=== PATIENT | female | born 1995 | race Caucasian/White ===

== ENCOUNTER → 2016-12-10 | Outpatient (CLI) | payer OTHER ==
--- NOTE | 2016-12-10 13:35 | US ---
EXAMINATION TYPE: US OB anatomy transabd DATE OF EXAM: 12/10/2016 COMPARISON: NONE HISTORY: Large for dates, second trimester O36.62 TECHNIQUE: Transabdominal (TA) EXAM MEASUREMENTS: GESTATIONAL AGE / DATING Physician Established: (23 weeks/1 day) EDC: 04/07/2017 Dates by LMP: (23 weeks/1 day) EDC: 04/07/2017 First Scan: today Dates by Current Scan for: (22 weeks/0 days) EDC: 04/15/2017 SURVEY IUP: Single PLACENTA: Posterior PREVIA: No previa YOLANDA: 12.9 cm Normal CERVICAL LENGTH (transabdominal: norm > 3.0cm): 3.9 cm BIOMETRY PRESENTATION: Vertex LIE: Longitudinal BPD: 5.0 cm 21 weeks / 1 day HC: 20.1 cm 22 weeks / 2 day AC: 17.2 cm 22 weeks / day FL: 3.8 cm 22 weeks / day ESTIMATED WEIGHT IN GRAMS: 477.3 grams ESTIMATED WEIGHT IN LBS/OZ: 1 lbs. 1 oz. WEIGHT PERCENTAGE BASED ON ESTABLISHED DATE: 7.*9 % HC/AC: 1.17 Normal FL/AC: 22.0 Normal HEART RATE: 140 bpm RHYTHM: Normal ANATOMY SEEN (within normal limits): * Lateral Vent (< 1 cm) 0.8 cm * Cisterna Magna (< 1.1 cm) 0.4 cm * Nuchal Fold (< 0.6 cm) 0.5 cm * Cerebellum (varies with age) 2.2 cm Choroid Plexus (bilateral) Midline Falx Cavus Septi Pellucidi Four Chamber Heart Outflow tracts: LVOT/RVOT Stomach Situs Diaphragm Kidneys (bilateral) Bladder Cord Insert Three Vessel Cord Longitudinal Spine Transverse Spine Arms (bilateral) Legs (bilateral) ANATOMY NOT SEEN: Nose / Lips due to position Single, live, IUP, 22 weeks/0 days, EDC: 04/15/2017, [id number]. IMPRESSION: HASSAN FETUS PRESENT IN A VERTEX LIE WITH A GESTATIONAL AGE OF 22 WEEKS +/- 2 2 WEEKS. ESTIMATED D ATE OF CONFINEMENT BASED ON THIS EXAMINATION IS 04/15/2017.
== END | disposition home or self-care (01) ==
LOC: RADUSWWP 12:13
PROVIDERS: ATTEND Obstetrics & Gynecology
DX: O36.62X0 Maternal care for excessive fetal growth, second trimester, not applicable or unspecified (principal); Z3A.22 22 weeks gestation of pregnancy
CPT/HCPCS: 76811

== ENCOUNTER 2017-01-29 12:22 | Outpatient (CLI) | payer OTHER ==
[2017-01-29 12:51] VITALS: BP 101/64; PULSE 90; RESP 16; TEMP 97.1
[2017-01-29] MEDS: LACTATED RINGERS 1,000 ML IV SCH ×2 (13:09→13:39)
[2017-01-29 13:11] LABS: Appearance,Urine Cloudy (Clear); Bacteria,Urine Rare /hpf; Bilirubin,Urine Negative (Negative); Glucose,Urine (UA) Negative (Negative); Ketones,Urine 3+ (Negative); Leukocyte Esterase,Urine Large (Negative); Mucus,Urine Many /hpf; Nitrite,Urine Negative (Negative); PH, Urine 6.5 (5.0-8.0); Particle Count 11711; Protein,Urine Trace (Negative); RBC,Urine 1 /hpf (0-5); Specific Gravity,Urine 1.013 (1.001-1.035); Squamous Epithelial Cell,Urine 15 /hpf (0-4); UA Billing (MACRO vs. MICRO) MICRO; Urobilinogen,Urine <2.0 mg/dL (<2.0); WBC,Urine 8 /hpf (0-5)
--- NOTE | 2017-03-25 08:49 | P.MSEPDOC ---
Presenting Problems - Arrival Data Date of Arrival on Unit: 01/29/17 Time of Arrival on Unit: 12:22 Mode of Transport: Ambulatory - Complaint OB-Reason for Admission/Chief Complaint: Possible Onset of Labor, Pain Comment: Pt states she started feeling contractions today and yesterday she was nauseated/vomiting and had diarrhea. Medical History - Information : 3 Para: 2 Term: 2 : 0 Abortions: Spontaneous or Elective: 0 Number of Living Children: 2 - Gestational Age Gestational Age by LONG (wks/days): 30 Weeks and 2 Days Review of Systems - Review of Systems Constitutional: No problems Breast: No problems ENT: No problems Cardiovascular: No problems Respiratory: No problems Gastrointestinal: No problems Genitourinary: No problems Musculoskeletal: No problems Neurological: No problems Skin: No problems Vital Signs - Temperature Temperature: 97.1 F Temperature Source: Temporal Artery Scan - Pulse Right Pulse Oximetery Pulse Rate: 90 Pulse Assessment Method: Pulse Oximetry - Respirations Respiratory Rate: 16 Oxygen Delivery Method: Room Air O2 Sat by Pulse Oximetry: 100 - Blood Pressure Right Arm Blood Pressure: 101/64 Blood Pressure Mean: 76 Blood Pressure Source: Automatic Cuff Medical Screen Scoring (Pre) - Cervical Exam Dilation: Exam Deferred Effacement: Exam Deferred Membranes: Intact - Uterine Contractions Frequency: < 36 weeks = 6 Duration: N/A Intensity: N/A - Maternal Vital Signs Maternal Temperature: N/A Maternal Blood Pressure: N/A Signs of Preeclampsia: N/A Maternal Respirations: N/A - Maternal Trauma Maternal Trauma: N/A - Assessment Baseline FHR: 145 Heart Rate - NICHD Category: Category I (Normal) = 0 NST: Reactive Position: N/A Station: N/A - Total Score Total Score (Pre): 6 - Level of Risk Level of Risk: Medium (6-9) Medical Screen Scoring (Post) - Cervical Exam Dilation: 1-3 cm = 1 Membranes: Intact - Uterine Contractions Frequency: > 5 minutes apart = 1 Duration: N/A Intensity: N/A - Maternal Vital Signs Maternal Temperature: N/A Maternal Blood Pressure: N/A Signs of Preeclampsia: N/A Maternal Respirations: N/A - Maternal Trauma Maternal Trauma: N/A - Assessment Heart Rate: 135 Heart Rate - NICHD Category: Category I (Normal) = 0 NST: Reactive Position: N/A Station: N/A - Total Score Total Score (Post): 2 - Post Treatment Level of Risk Post Treatment Level of Risk: Low (0-5) Physician Notification (Post) - Physician Notified Physician Notified Date: 01/29/17 Physician Notified Time: 12:50 Physician/Practitioner Notified:: Dr Freitas Spoke With: Telephone New Order Received: Yes (discharge) Disposition - Disposition OB Disposition: Discharge to home Discharge Date: 01/29/17 Discharge Time: 14:57 I agree with the RN Medical Screening Exam: Yes Risk & Benefit of care provided described in d/c instruction: Yes Diagnosis: FALSE LABOR BEFORE 37 COMPLETED WEEKS OF GEST, THIRD TRI
== END 2017-01-29 14:57 | disposition home or self-care (01) ==
LOC: FBPOP 12:22
PROVIDERS: ATTEND Obstetrics & Gynecology
DX: O47.03 False labor before 37 completed weeks of gestation, third trimester (principal); Z3A.30 30 weeks gestation of pregnancy
CPT/HCPCS: 59025; 81001; 82731; 96360; 96361; 99214

== ENCOUNTER → 2017-02-10 | Outpatient (CLI) | payer OTHER ==
--- NOTE | 2017-02-10 14:22 | US ---
EXAMINATION TYPE: US OB anatomy transabd DATE OF EXAM: 02/10/2017 COMPARISON: 12/10/2016 HISTORY: 21-year-old female Large for Dates O36.63XO LGA TECHNIQUE: Transabdominal (TA) FINDINGS: EXAM MEASUREMENTS: GESTATIONAL AGE / DATING Physician Established: (32 weeks/0 days) EDC: 04/07/2017 Dates by LMP: (32 weeks/0 days) EDC: 04/07/2017 Dates by First Scan: (30 weeks/6 days) EDC: 04/15/2017 Dates by Current Scan for: (31 weeks/1 days) EDC: 04/13/2017 SURVEY IUP: Single PLACENTA: Posterior PREVIA: No previa YOLANDA: 10.8 cm, lower end of normal. CERVICAL LENGTH (transabdominal: norm > 3.0cm): 3.6 cm BIOMETRY PRESENTATION: Vertex LIE: Longitudinal BPD: 7.8 cm 31 weeks / 1 days HC: 29.6 cm 32 weeks / 5 days AC: 26.9 cm 31 weeks / 0 days FL: 6.0 cm 31 weeks / 0 days ESTIMATED WEIGHT IN GRAMS: 1713 grams ESTIMATED WEIGHT IN LBS/OZ: 3 lbs. 12 oz. WEIGHT PERCENTAGE BASED ON ESTABLISHED DATE: 16.7 % vs 7.9%, previously. HC/AC: 1.10 Normal FL/AC: 22 Normal HEART RATE: 134 bpm RHYTHM: Normal ANATOMY SEEN (within normal limits): Midline Falx Stomach Situs Nose / Lips Diaphragm Bladder Longitudinal Spine Transverse Spine ANATOMY NOT SEEN: due to advanced age and lie Cavus Septi Pellucidi Lateral Vent (< 1 cm) Cisterna Magna (< 1.1 cm) Cerebellum (varies with age) Choroid Plexus (bilateral) Four Chamber Heart Outflow tracts: LVOT/RVOT Kidneys (bilateral) Cord Insert Three Vessel Cord Arms (bilateral) Legs (bilateral) IMPRESSION: 1. Single live intrauterine with gestational age of 32 weeks 0 days. Current ultrasound bio metry remains smaller (31 weeks 1 day) but concordant and with appropriate interval growth. 2. EFW percentile has moved from 7.9% to 16.7%.
== END | disposition home or self-care (01) ==
LOC: RADUSWWP 12:29
PROVIDERS: ATTEND Obstetrics & Gynecology
DX: O36.63X0 Maternal care for excessive fetal growth, third trimester, not applicable or unspecified (principal); Z3A.32 32 weeks gestation of pregnancy
CPT/HCPCS: 76811

== ENCOUNTER → 2017-03-03 | Outpatient (CLI) | payer OTHER ==
--- NOTE | 2017-03-03 15:28 | US ---
EXAMINATION TYPE: US OB anatomy transabd DATE OF EXAM: 03/03/2017 COMPARISON: 02/10/2017 HISTORY: 22-year-old female O36.5930 Small for dates 3trimester. SGA TECHNIQUE: Transabdominal (TA) FINDINGS: EXAM MEASUREMENTS: GESTATIONAL AGE / DATING Physician Established: (35 weeks/0 days) EDC: 04/07/17 Dates by LMP: (35 weeks/0 days) EDC: 04/07/17 Dates by First Scan: (33 weeks/6 days) EDC: 04/15/17 Dates by Current Scan for: (34 weeks/4 days) EDC: 04/10/17 SURVEY IUP: Single PLACENTA: Posterior PREVIA: No previa YOLANDA: 11.6 cm Normal CERVICAL LENGTH (transabdominal: norm > 3.0cm): 3.1 cm BIOMETRY PRESENTATION: Vertex LIE: Longitudinal BPD: 8.4 cm 33 weeks / 6 days HC: 31.3 cm 35 weeks / 1 days AC: 30.6 cm 34 weeks / 4 days FL: 6.6 cm 34 weeks / 0 days ESTIMATED WEIGHT IN GRAMS: 2463 grams ESTIMATED WEIGHT IN LBS/OZ: 5 lbs. 7 oz. WEIGHT PERCENTAGE BASED ON ESTABLISHED DATE: 34 % versus 16.7%, previously. There has been 3 days mo re growth than expected from 02/10/2017. HC/AC: 1.01 Normal FL/AC: 21% Normal HEART RATE: 126 bpm RHYTHM: Normal ANATOMY SEEN (within normal limits): Cavus Septi Pellucidi Four Chamber Heart Stomach Situs Diaphragm Kidneys (bilateral) Bladder Three Vessel Cord ANATOMY NOT SEEN: due to age and position Longitudinal Spine Transverse Spine Arms (bilateral) Legs (bilateral) Cord Insert Nose / Lips Lateral Vent Cisterna Magna (< 1.1 cm) Cerebellum (varies with age) cm Choroid Plexus (bilateral) Midline Falx Outflow tracts: LVOT/RVOT Wiring Technician notes: Single viable IUP 34wks/4 days with LONG of 04/10/17 IMPRESSION: 1. Single live intrauterine with established gestational age of 35 weeks 0 days by LMP. Cur rent ultrasound biometry is concordant (34 weeks 4 days) placing the child at the 34th percentile for weight. 2. The weight percentile has increased from 17% on 02/10/2017 as there has been 3 days more growth lupe n expected from that time.
== END | disposition home or self-care (01) ==
LOC: RADUSWWP 11:13
PROVIDERS: ATTEND Obstetrics & Gynecology
DX: O36.5930 Maternal care for other known or suspected poor fetal growth, third trimester, not applicable or unspecified (principal); Z3A.35 35 weeks gestation of pregnancy
CPT/HCPCS: 76805

== ENCOUNTER 2017-03-31 06:00 | Inpatient (IN) | payer OTHER ==
[2017-03-31] MEDS ORDERED: CARBOPROST TROMETHAMINE 250 MCG/ML 1 ML AMP IM PRN (06:52)
[2017-03-31] MEDS ORDERED: TERBUTALINE 1 MG/ML VIAL SQ PRN (06:52)
[2017-03-31] MEDS ORDERED: METHYLERGONOVINE 0.2 MG/ML 1 ML AMP IM PRN (06:52)
[2017-03-31] MEDS ORDERED: LIDOCAINE 1% (PF) 10 MG/ML (30 ML SDV) SQ PRN (06:52)
[2017-03-31] MEDS ORDERED: OXYTOCIN 10 UNIT/ML 1 ML VIAL IM PRN (06:52)
[2017-03-31] MEDS ORDERED: OXYTOCIN 20 UNITS/1000 ML NS 1,000 ML IV SCH (07:00)
[2017-03-31] MEDS: LACTATED RINGERS 1,000 ML IV SCH ×2 (07:17→10:51)
[2017-03-31 07:20] LABS: Basophils # (A) 0.1 k/uL (0-0.2); Basophils % (A) 1 %; CH 28.7; Eosinophils # (A) 0.2 k/uL (0-0.7); Eosinophils % (A) 2 %; HCT 33.5 % (34.0-46.0); HDW 3.32; HGB 10.6 gm/dL (11.4-16.0); Hypochromasia Slight; Luc % (Auto) 2; Lymphocytes # (A) 2.4 k/uL (1.0-4.8); Lymphocytes % (A) 22 %; MCH 28.7 pg (25.0-35.0); MCHC 31.8 g/dL (31.0-37.0); MCV 90.1 fL (80.0-100.0); Mean Platelet Volume 9.8; Monocytes # (A) 0.6 k/uL (0-1.0); Monocytes % (A) 5 %; Neutrophils # (A) 7.6 k/uL (1.3-7.7); Neutrophils % (A) 69 %; RBC 3.71 m/uL (3.80-5.40); RDW 14.8 % (11.5-15.5)
[2017-03-31 08:02] VITALS: BMI 25.7
[2017-03-31] MEDS ORDERED: BUTORPHANOL 1 MG/ML 1 ML VIAL IV PRN (08:42)
--- NOTE | 2017-03-31 09:06 | P.HPOB ---
History of Present Illness H&P Date: 03/31/17 Chief Complaint: Intrauterine at term Patient is a 22-year-old at 39 weeks gestation arise for induction of labor. Her course has generally been unremarkable and she is feeling well at this time. She is being induced because her is in the and needed have a scheduled induction subcuticular be able to be her for the delivery. Her physical exam reveals normal vital signs and she is afebrile. Heart regular, lungs clear, extremities without pain. Osteopathic exam is unremarkable. On pelvic exam she is dilated to 2 half centimeters 80% effaced - 2 station. Artificial rupture of membranes is performed and clear fluid is noted. Pertinent labs did include O+ blood type Rh antibody was negative, rubella immune, RPR was negative. Assessment intrauterine at term. Plan expect spontaneous vaginal delivery. Past Medical History Past Medical History: No Reported History History of Any Multi-Drug Resistant Organisms: None Reported Past Surgical History: Orthopedic Surgery Additional Past Surgical History / Comment(s): 2009, d&c age 13 Past Anesthesia/Blood Transfusion Reactions: No Reported Reaction Past Psychological History: Anxiety, Depression Smoking Status: Never smoker Past Drug Use History: None Reported - Past Family History Mother Family Medical History: COPD, Hypertension Medications and Allergies Home Medications Medication Instructions Recorded Confirmed Type RX: Pnv 11/Iron Fum/Folic Acid/Om3 1 tab PO DAILY 01/29/17 03/31/17 History [Virt-Osmani Dha Softgel] Allergies Allergy/AdvReac Type Severity Reaction Status Date / Time Penicillins Allergy Rash/Hives Verified 03/31/17 06:51 Exam Osteopathic Statement: *. No significant issues noted on an osteopathic structural exam other than those noted in the History and Physical/Consult. - Vital Signs Vital signs: Vital Signs Temp Pulse Resp BP 03/31/17 07:50 97.2 F L 113 H 16 114/86 Intake and Output 03/30/17 03/31/17 03/31/17 22:59 06:59 14:59 Other: Weight 63.957 kg 63.957 kg Patient Weight 04/01/17 06:59 Weight 63.957 kg Results Result Diagrams: 03/31/17 07:05 Abnormal Lab Results - Last 24 Hours (Table) 03/31/17 Range/Units 07:05 WBC 11.0 H (3.8-10.6) k/uL RBC 3.71 L (3.80-5.40) m/uL Hgb 10.6 L (11.4-16.0) gm/dL Hct 33.5 L (34.0-46.0) %
[2017-03-31] MEDS ORDERED: SODIUM CHLORIDE 0.9% 100 ML BAG ONE (09:34)
[2017-03-31] MEDS ORDERED: fentaNYL (PF) 50 MCG/ML 5 ML AMP ONE (09:34)
[2017-03-31] MEDS ORDERED: BUPIVACAINE (PF) 0.25% 30 ML VIAL ONE (09:34)
[2017-03-31] MEDS ORDERED: BUPIVACAINE (PF) 0.25% 25 ML, fentaNYL (PF) 200 MCG in SODIUM CHLORIDE 0.9% 71 ML EPIDURAL ONE (10:02)
[2017-03-31] MEDS ORDERED: DIPH,PERTUS(ACELL)TETVAC-LF 0.5 ML VIAL IM ONE (10:48)
[2017-03-31] MEDS ORDERED: INFLUENZA VACCINE (6 MOS+) 60 MCG/0.5 ML SYRINGE IM ONE (10:48)
[2017-03-31] MEDS ORDERED: SIMETHICONE 80 MG CHEWABLE PO PRN (10:59)
[2017-03-31] MEDS ORDERED: diphenhydrAMINE 25 MG CAP PO PRN (10:59)
[2017-03-31] MEDS ORDERED: LANOLIN CREAM 5 GM TUBE TOPICAL PRN (10:59)
[2017-03-31] MEDS ORDERED: HYDROCORTISONE 2.5% RECTAL CREAM 30 GM TUBE RECTAL PRN (10:59)
[2017-03-31] MEDS ORDERED: WITCH HAZEL 1 EACH MED..PAD TOPICAL PRN (10:59)
[2017-03-31] MEDS ORDERED: BENZOCAINE/MENTHOL SPRAY 1 GM/SPRAY AEROSOL TOPICAL PRN (10:59)
[2017-03-31] MEDS ORDERED: diphenhydrAMINE 50 MG CAP PO PRN (10:59)
[2017-03-31] MEDS ORDERED: diphenhydrAMINE 50 MG/ML 1 ML VIAL IVP PRN ×2 (10:59)
[2017-03-31] MEDS ORDERED: ACETAMINOPHEN TAB 325 MG TAB PO PRN (10:59)
[2017-03-31] MEDS ORDERED: ZOLPIDEM 5 MG TAB PO PRN (10:59)
[2017-03-31] MEDS ORDERED: Acetaminophen-Codeine 300-30mg TAB PO PRN (10:59)
[2017-03-31] MEDS: IBUPROFEN 600 MG TAB PO PRN ×2 (11:57→20:06)
--- NOTE | 2017-03-31 16:48 | P.PROBDLV ---
Vaginal Delivery Note - . Vaginal Delivery Note: Patient progressed complete and pushing with spontaneous vaginal delivery of a viable female over an intact perineum. Falling deliver the head anterior posterior shoulders were easily reduced with gentle downward and upward traction followed by the remainder the baby. Mouth nares were then bulb suctioned and baby was placed on mother's abdomen where the umbilical cord was allowed to pulsate for approximately 30 seconds prior to clamping and cutting. Once this was accomplished nursery personnel was present to assume care. Placenta was then delivered intact and Pitocin was added to the IV. scores were 9 and 9 at one and 5 minutes respectively and the weight was 6 lbs. 14 oz. Both mother and baby are stable following delivery.
[2017-03-31] MEDS: SENNOSIDES-DOCUSATE SODIUM 1 EACH TAB PO SCH (21:09)
[2017-03-31] MEDS: Acetaminophen-Codeine 300-30mg TAB PO PRN (22:50)
[2017-04-01] MEDS: Acetaminophen-Codeine 300-30mg TAB PO PRN (05:41)
[2017-04-01] MEDS: SENNOSIDES-DOCUSATE SODIUM 1 EACH TAB PO SCH (07:22)
[2017-04-01] MEDS: IBUPROFEN 600 MG TAB PO PRN (07:22)
[2017-04-01 07:47] VITALS: BP 103/66; PULSE 69; RESP 17; TEMP 97.5
--- NOTE | 2017-04-01 08:39 | P.DS ---
Providers Date of admission: 03/31/17 06:43 Expected date of discharge: 04/01/17 Attending physician: Christian Freitas Primary care physician: Stated None Hospital Course: Patient is doing very well day 1. She is ambulating, voiding, and she is tolerating her diet. She voices no complaints. Vital signs are stable and afebrile. Heart regular, lungs clear, extremities without pain. Abdomen is soft uterus is firm lochia is reported to be light. She voices no other complaints. Assessment day 1. Plan discharged home follow up with me in 6 weeks. Discharge instructions were thoroughly reviewed and prescription for Motrin and Tylenol No. 3 provided at her request. Patient Condition at Discharge: Good Plan - Discharge Summary New Discharge Prescriptions: New Acetaminophen-Codeine 300-30mg [Tylenol #3] 1 tab PO Q4H PRN #30 tablet PRN Reason: Pain Ibuprofen [Motrin] 600 mg PO Q6HR PRN #30 tab PRN Reason: Pain No Action Pnv 11/Iron Fum/Folic Acid/Om3 [Virt-Osmani Dha Softgel] 1 tab PO DAILY Discharge Medication List Pnv 11/Iron Fum/Folic Acid/Om3 [Virt-Osmani Dha Softgel] 1 tab PO DAILY 01/29/17 [ History] Acetaminophen-Codeine 300-30mg [Tylenol #3] 1 tab PO Q4H PRN #30 tablet [Rx] Ibuprofen [Motrin] 600 mg PO Q6HR PRN #30 tab 04/01/17 [Rx] Follow up Appointment(s)/Referral(s): Christian Freitas DO [Doctor of Osteopathic Medicine] - 1 Week Activity/Diet/Wound Care/Special Instructions: The lifting, limit stairs and driving, and pelvic rest. If any high temperatures, heavy bleeding, or severe pain call my office Discharge Disposition: HOME SELF-CARE
[2017-04-01 10:54] LABS: Basophils % (A) 0 %; CH 29.4; CHCM 32.2; Eosinophils # (A) 0.1 k/uL (0-0.7); Eosinophils % (A) 1 %; HCT 26.9 % (34.0-46.0); HDW 3.62; Hypochromasia Moderate; Luc # (Auto) 0.18; Luc % (Auto) 2; Lymphocytes # (A) 2.4 k/uL (1.0-4.8); Lymphocytes % (A) 19 %; MCH 28.6 pg (25.0-35.0); MCHC 31.2 g/dL (31.0-37.0); MCV 91.8 fL (80.0-100.0); Mean Platelet Volume 9.8; Monocytes # (A) 0.6 k/uL (0-1.0); Monocytes % (A) 5 %; Neutrophils # (A) 8.9 k/uL (1.3-7.7); Neutrophils % (A) 73 %; Poikilocytosis Slight; RBC 2.93 m/uL (3.80-5.40); WBC 12.2 k/uL (3.8-10.6); WBC (Perox) 12.06
[2017-04-01 11:09] LABS: HGB 8.4 gm/dL (11.4-16.0)
== END 2017-04-01 11:55 | disposition home or self-care (01) | DRG 775 ==
LOC: 4FBP 06:43
PROVIDERS: ADMIT Obstetrics & Gynecology; ATTEND Obstetrics & Gynecology
PROC: 10907ZC Drainage of Amniotic Fluid, Therapeutic from Products of Conception, Via Natural or Artificial Opening (ICD-10-PCS; principal; 2017-03-31)
PROC: 00HU33Z Insertion of Infusion Device into Spinal Canal, Percutaneous Approach (ICD-10-PCS; principal; 2017-03-31)
PROC: 3E033VJ Introduction of Other Hormone into Peripheral Vein, Percutaneous Approach (ICD-10-PCS; principal; 2017-03-31)
PROC: 3E0R3BZ Introduction of Anesthetic Agent into Spinal Canal, Percutaneous Approach (ICD-10-PCS; principal; 2017-03-31)
PROC: 10E0XZZ Delivery of Products of Conception, External Approach (ICD-10-PCS; principal; 2017-03-31)
DX: O80 Encounter for full-term uncomplicated delivery (principal); Z88.0 Allergy status to penicillin; Z37.0 Single live birth; Z3A.39 39 weeks gestation of pregnancy
CPT/HCPCS: 85025; 86850; 86900; 86901; 87340; 88307; 90686; 90715

== ENCOUNTER → 2017-06-13 | Outpatient (CLI) | payer OTHER ==
[2017-06-13 12:41] LABS: Basophils # (A) 0.1 k/uL (0-0.2); Basophils % (A) 1 %; Eosinophils # (A) 0.2 k/uL (0-0.7); Eosinophils % (A) 2 %; HCT 34.4 % (34.0-46.0); HGB 10.5 gm/dL (11.4-16.0); Hypochromasia Moderate; Lymphocytes # (A) 3.3 k/uL (1.0-4.8); Lymphocytes % (A) 38 %; MCH 26.9 pg (25.0-35.0); MCHC 30.5 g/dL (31.0-37.0); Mean Platelet Volume 7.4; Monocytes # (A) 0.5 k/uL (0-1.0); Monocytes % (A) 6 %; Neutrophils # (A) 4.4 k/uL (1.3-7.7); Neutrophils % (A) 50 %; Platelet Count 422 k/uL (150-450); RBC 3.91 m/uL (3.80-5.40); WBC 8.8 k/uL (3.8-10.6)
== END | disposition home or self-care (01) ==
LOC: LABPAT 12:07
PROVIDERS: ATTEND Obstetrics & Gynecology
DX: Z01.818 Encounter for other preprocedural examination (principal)
CPT/HCPCS: 36415; 85025

== ENCOUNTER 2017-06-16 06:54 | Day surgery (SDC) | payer OTHER ==
[2017-06-11 14:42] VITALS: BMI 21.9
[~2017-06-16 06:54] MED LIST: DEXAMETHASONE SOD PHOSPHATE 10 MG/ML 1 ML VIAL IV ONE; LACTATED RINGERS 1,000 ML IV SCH; MIDAZOLAM 2 MG/2 ML VIAL IV PRN; MORPHINE SULFATE 4 MG/ML SYRINGE IV PRN; ONDANSETRON 4 MG/2 ML VIAL IVP ONE; Pre Op ABX Message 1 EACH MISC MISCELLANE ONE; SCOPOLAMINE 1.5MG/72HR PATCH TRANSDERM ONE
[2017-06-16 07:05] VITALS: TEMP 98
[2017-06-16] MEDS ORDERED: LIDOCAINE 1% 20 ML VIAL (10MG/ML) FOR IV START INTRADERMA ONE (07:07)
[2017-06-16] MEDS ORDERED: HYDROmorphone (PF) 1 MG/ML ONE (07:48)
[2017-06-16] MEDS ORDERED: fentaNYL (PF) 50 MCG/ML 2 ML AMP ONE (07:48)
[2017-06-16] MEDS ORDERED: MIDAZOLAM 2 MG/2 ML VIAL ONE (07:48)
[2017-06-16] MEDS ORDERED: PROPOFOL 10 MG/ML 20 ML VIAL IV ONE (07:48)
[2017-06-16] MEDS ORDERED: LIDOCAINE 1% INJ 10MG/ML (20 ML MDV) ONE (07:48)
[2017-06-16] MEDS ORDERED: ACETAMINOPHEN IV (For NPO) 1,000 MG/100 ML VIAL ONE (07:48)
[2017-06-16] MEDS ORDERED: SUCCINYLCHOLINE CHLORIDE 100 MG/5 ML SYR IV ONE (07:48)
[2017-06-16] MEDS ORDERED: KETOROLAC 30 MG/ML 1 ML VIAL ONE (07:48)
[2017-06-16] MEDS ORDERED: BUPIVACAINE (PF) 0.25% 30 ML VIAL SQ ONE (08:07)
--- NOTE | 2017-06-16 08:20 | P.HPOB ---
History of Present Illness H&P Date: 06/16/17 Chief Complaint: Family planning CINTHIA is a 22-year-old female who has completed her family planning and desires permanent sterilization. Risks/benefits/alternatives to a laparoscopic tubal occlusion were discussed with the patient in detail including but not limited to damage to bladder, bowel, vascular injuries, nerve damage, ureteral injuries , bleeding and infection. As well as discussion on IUDs versus other forms of control that were long-acting but couldn't be reversed. She is adamant she wants her tubes tied and she is scheduled for same. On physical exam vital signs are stable and afebrile. Heart regular, lungs clear, extremities without pain. Pelvic exams otherwise unremarkable. Assessment family planning. Plan lap tubal with Filshie clips Past Medical History Past Medical History: No Reported History History of Any Multi-Drug Resistant Organisms: None Reported Past Surgical History: Orthopedic Surgery Additional Past Surgical History / Comment(s): RT WRIST ORIF 2009, d&c age 13, Past Anesthesia/Blood Transfusion Reactions: No Reported Reaction Smoking Status: Never smoker - Past Family History Mother Family Medical History: COPD, Hypertension Medications and Allergies Home Medications Medication Instructions Recorded Confirmed Type Acetaminophen-Codeine 300-30mg 1 tab PO Q4H PRN #30 tablet 06/16/17 Rx [Tylenol #3] Ibuprofen [Motrin] 600 mg PO Q6HR PRN #30 tab 06/16/17 Rx Allergies Allergy/AdvReac Type Severity Reaction Status Date / Time Penicillins Allergy Rash/Hives Verified 06/16/17 07:05 Exam Osteopathic Statement: *. No significant issues noted on an osteopathic structural exam other than those noted in the History and Physical/Consult. - Vital Signs Vital signs: Vital Signs Temp Pulse Resp BP Pulse Ox 06/16/17 07:04 98 F 98 16 109/68 100 Intake and Output 06/15/17 06/16/17 06/16/17 22:59 06:59 14:59 Intake Total 300 Output Total 7 Balance 293 Intake: IV 300 Output: Urine 5 Estimated Blood Loss 2
--- NOTE | 2017-06-16 08:22 | P.OP ---
Date of Procedure: 06/16/17 Preoperative Diagnosis: Family planning Postoperative Diagnosis: Same Procedure(s) Performed: Laparoscopic tubal occlusion with Filshie clips Anesthesia: BOB Surgeon: Christian Freitas Estimated Blood Loss (ml): 2 IV fluids (ml): 200 Urine output (ml): 5 Pathology: none sent Condition: stable Disposition: same day Operative Findings: Normal uterus, tubes, ovaries Description of Procedure: Patient was taken to the operating suite where a general anesthetic was found be adequate. She was prepped and draped in the normal sterile fashion and placed in the dorsal lithotomy position. Initially a speculum was inserted into the vagina and the anterior lip of the cervix was identified and grasped with effaced Allis clamp. Uterus was then sounded to 7 cm and made manipulator was inserted without difficulty. Allis clamp and speculum were then removed and rubber catheter was used to drain the bladder of urine. At this point gloves were changed and attention was turned to the abdominal portion procedure where 2 mL of quarter percent Marcaine was injected periumbilically. Through this injected anesthetic a 5 mm skin incision was made and through this incision under direct visualization with an optical trocar and sleeve the camera was inserted. Once peritoneal placement was assured gas was left fully insufflate the abdomen and a second 8 mm skin incision was made 3 cm above the pubic symphysis in the midline. Through this incision an 8 mm trocar and sleeve were inserted again under direct visualization. Once placement was completed right fallopian tube and then left fallopian tubes were identified is elevation of the uterus and a clip was placed over them 2-3 cm from the uterine cornu. No bleeding was noted from the mesosalpinx therefore instruments were removed following inspection of the abdomen and pelvis seeing no abnormalities. Once instruments were removed gas was allowed to expel from the abdomen and 5 deep breaths were provided. Once this was accomplished 4-0 Vicryl was used to close incision subcuticularly and 8 mL of quarter percent Marcaine was injected around these incisions. Instruments were then removed from the vagina. Sponge , lap, needle counts were all correct 2. Patient was taken to the recovery room in stable and satisfactory condition. Plan - Discharge Summary New Discharge Prescriptions: New Acetaminophen-Codeine 300-30mg [Tylenol #3] 1 tab PO Q4H PRN #30 tablet PRN Reason: Pain Ibuprofen [Motrin] 600 mg PO Q6HR PRN #30 tab PRN Reason: Pain Discharge Medication List Acetaminophen-Codeine 300-30mg [Tylenol #3] 1 tab PO Q4H PRN #30 tablet [Rx] Ibuprofen [Motrin] 600 mg PO Q6HR PRN #30 tab 06/16/17 [Rx] Follow up Appointment(s)/Referral(s): Christian Freitas DO [Doctor of Osteopathic Medicine] - 2 Weeks Activity/Diet/Wound Care/Special Instructions: No heavy lifting, limit stairs and driving, and pelvic rest. If any high temperatures, heavy bleeding, or severe pain call my office
[2017-06-16] MEDS ORDERED: HYDROmorphone 2 MG/ML 1 ML SYRINGE IVP ONE ×2 (09:02→09:12)
[2017-06-16 09:36] VITALS: RESP 16
[2017-06-16] MEDS ORDERED: MEPERIDINE 50 MG/ML SYRINGE IVP ONE (10:28)
[2017-06-16 10:51] VITALS: BP 115/78; PULSE 93
== END 2017-06-16 11:19 | disposition home or self-care (01) ==
LOC: OR 06:54
PROVIDERS: ATTEND Obstetrics & Gynecology
DX: Z30.2 Encounter for sterilization (principal); Z88.0 Allergy status to penicillin
CPT/HCPCS: 81025